=== PATIENT | female | born 1960 | race Caucasian/White ===

== ENCOUNTER → 2017-09-13 | Outpatient (CLI) | payer BC ==
[~2017-09-13] MED LIST: BACLOFEN20 MG PO; DEPAKOTE250 MG; EXCEDRIN MIGRA1 EAC1 PO; FLEXERIL PO; IBUPROFEN 200200 M1 PO; LEXAPRO 10 MG T10 M1; LIPITOR10 MG PO; NEXIUM40 MG; NORCO 5-325 TA1 EACH PO; PAMELOR10 MG PO; PERCOCET 10-321 EACH PO; PERCOCET PO; PHENERGAN 25 MG25 M1 PO; PREMPRO 0.3 MG1 EACH PO; PREMPRO 0.625-1 EACH; TOPAMAX 25 MG T25 M1; VICODIN 5-5001 EACH PO; ZOFRAN ODT4 MG PO; ZOFRAN4 MG PO; ZYRTEC 10 MG TA10 MG PO; ZYRTEC10 M5
== END ==
LOC: RAD 08:27
DX: Z12.31 Encounter for screening mammogram for malignant neoplasm of breast (principal)

== ENCOUNTER → 2018-02-13 | Outpatient (CLI) | payer BC ==
[~2018-02-13] VITALS: Ht 157.5 cm; Wt 58.5 kg
[~2018-02-13] MED LIST changes: +AMITRIPTYLINE H50 M2 PO; +KLONOPIN0.5 MG PO; +PREMPRO 0.45-11 EACH PO; +TOPAMAX50 MG PO
--- NOTE | ~2018-02-13 | HPC ---
[facility] [place] [address] PAIN MANAGEMENT CONSULTATION Name: ROCKY MICHAELS Room #: REG MARCO M.Refugio.#: [id number] Admission: 02/13/18 Attend Phys: Chaim Lizama DO Discharge: Date of : 60 Report #: [id number] THIS REPORT FOR: //name// CC: Chaim Salcedo MD DATE OF SERVICE: 02/13/2018 REFERRING PHYSICIAN: Corine Salcedo MD CHIEF COMPLAINT: Neck pain. HISTORY OF PRESENT ILLNESS: As you know, the patient is a very pleasant 57-year-old female, who returns today in followup visit with neck pain that began spontaneously. She is able to point to a very specific area that causes increase in symptoms. She is placing pain score around 7/10, states pain is aching in nature. It has been present for approximately 2 months. She has tried conservative medical therapy, but this has been ineffective at alleviating symptoms. She has returned per the request of her PCP for evaluation. She is denying any radicular component to her symptoms today. ALLERGIES: SULFA, CODEINE, BENADRYL. CURRENT MEDICATIONS: Escitalopram, cetirizine, omeprazole, topiramate, Excedrin Migraine, Prempro, atorvastatin. SOCIAL HISTORY: The patient denies tobacco, IV or illicit drug use. Admits to occasional alcohol beverage. She is a registered nurse, working, not receiving workmen's compensation, unaccompanied today. IMAGING: No new imaging available. PQRS: The patient has no known osteoarthritis or rheumatoid arthritis. She is not a fall risk. She has not had a fall in the last 3 months. She does provide a pain intensity of 7/10. She is not on blood thinners, not treated for hypertension. She is not on chronic opioids. She has a low opioid assessment risk factor. Pain impact score 31/70. PHYSICAL EXAMINATION: VITAL SIGNS: Blood pressure 113/79, pulse 77, respiratory rate 14 and unlabored. The patient is 99% on room air. Height 5 feet 2 inches tall, weight 129 pounds, BMI calculated 23.6. GENERAL: Well-developed, well-nourished, well-hydrated 57-year-old female appearing stated age. She is placing pain score today 7/10. HEENT: Normocephalic, atraumatic. Pupils equal, round, reactive to light. [facility] [address] [place] [address] PAIN MANAGEMENT CONSULTATION Name: ROCKY MICHAELS Room #: REG CLI [facility].#: [id number] Admission: 02/13/18 Attend Phys: Chaim Lizama DO Discharge: Date of : 60 Report #: [id number] EXTREMITIES: Show no clubbing, no cyanosis, no edema. MUSCULOSKELETAL: The patient has a definitive palpatory tenderness on the left cervical region, approximately C5-C6 level. There is no noted radicular component. Upper extremity strength is 5/5. She is intact to light touch from C5-T1 dermatomes. Deep tendon reflexes are symmetrical at biceps, brachialis and triceps. Spurling's test negative. Cervical provocation testing is met with increased pain on the left. ASSESSMENT: 1. Torticollis. 2. Myofascial pain. PLAN: 1. The patient has returned today in followup visit for increasing left neck pain with no radiation of symptoms. It appears by physical exam and history per patient provides and distribution of symptoms, it is myofascial in nature. We have discussed treatment for torticollis and myofascial symptoms that would include physical therapy, stretching exercises, slow manipulation techniques with myofascial release. We discussed trigger point injections and medication management. After reviewing risks and benefits of all proposed treatment options, the patient requested myofascial release techniques. We discussed the risks and benefits of myofascial release techniques. These would include increased pain, decreased mobility and increase in symptoms. After reviewing the risks and benefits, the patient chose to proceed 2. The patient was provided a prescription of clonazepam 0.5 mg 1 tab p.o. at bedtime. I have given the patient #30, advised the patient to take one half tab in the evening hours. If this is ineffective, then move towards a full tab. She is to take the medication only as directed, not to drive or operate heavy equipment while on the therapy. 3. We will see the patient back in followup visit on an as-needed basis. I am hopeful the myofascial treatment techniques provided today at bedside will improve the patient's overall pain. PROCEDURE NOTE DESCRIPTION OF PROCEDURE: Myofascial release techniques. After obtaining written consent, the patient was placed in a supine position. Using myofascial techniques, the patient was slowly stretched to manipulate through the myofascial symptoms she was experiencing. Rotational component was improved in the cervical region as well as the improvement in pain. There was no pain and paresthesias generated with the procedure. The patient tolerated all myofascial release techniques well. After meeting our discharge criteria [facility] [address] [place] [address] PAIN MANAGEMENT CONSULTATION Name: ROCKY MICHAELS Room #: GENE LARA Shanthi#: [id number] Admission: 02/13/18 Attend Phys: Chaim Lizama DO Discharge: Date of : 60 Report #: [id number] and after undergoing the myofascial release techniques, the patient was discharged home. <ELECTRONICALLY SIGNED> By: Chaim Lizama DO 02/19/18 1336 [id number] Chaim Lizama DO /nt
[2018-02-13 07:35] VITALS: BP 113/79
== END ==
LOC: PAIN 06:56
DX: M43.6 Torticollis (principal); M79.1 Myalgia; Z79.899 Other long term (current) drug therapy

== ENCOUNTER → 2018-07-12 | Outpatient (CLI) | payer BC ==
[~2018-07-12] VITALS: Ht 157.5 cm; Wt 60.3 kg
--- NOTE | ~2018-07-12 | HPC ---
[facility] [place] [address] PAIN MANAGEMENT CONSULTATION Name: ROCKY MICHAELS Room #: REG MARCO M.Refugio.#: [id number] Admission: 07/12/18 Attend Phys: Chaim Lizama DO Discharge: Date of : 60 Report #: [id number] THIS REPORT FOR: //name// CC: Chaim Salcedo MD DATE OF SERVICE: 07/12/2018 REFERRING PHYSICIAN: Corine Salcedo MD CHIEF COMPLAINT: Neck pain. HISTORY OF PRESENT ILLNESS: As you know, the patient is a very pleasant 58-year-old female who returns today in followup visit with recurrent neck pain and left upper extremity pain with paresthesias. The patient states the pain began spontaneously, no inciting injury or trauma. As you are aware, the patient has done very well with previous epidural injections noticing significant pain improvement. She returns requesting next in the series of cervical epidural injections to build on success of previous intervention. The patient has had no changes in her medical history since our last visit. She is not on any blood thinners. ALLERGIES: SULFA, CODEINE, and BENADRYL. CURRENT MEDICATIONS: Escitalopram, cetirizine, omeprazole, topiramate, Excedrin Migraine, Prempro, and atorvastatin. SOCIAL HISTORY: The patient denies tobacco, IV or illicit drug use, admits to occasional alcoholic beverage. She is a registered nurse, working, not receiving workmen's compensation, unaccompanied today. IMAGING: No new imaging available. PHYSICAL EXAMINATION: VITAL SIGNS: Blood pressure 112/77, pulse 88, respiratory rate 16 and unlabored, the patient is 100% on room air, height 5 feet 2 inches tall, weight 133 pounds, BMI calculated 24.3. GENERAL: Well-developed, well-nourished, well-hydrated 58-year-old female, appearing stated age, pain is rated at 7/10. HEENT: Normocephalic, atraumatic. Pupils are equal, round, and reactive to light. Speech is fluent. EXTREMITIES: Show no clubbing, no cyanosis, and no edema. MUSCULOSKELETAL: The patient does have palpatory tenderness over the cervical region on the left, approximate C5-C6 level. Spurling's test is positive left, negative right. Pain is noted to reach the hand with Spurling's test. [facility] [address] [place] [address] PAIN MANAGEMENT CONSULTATION Name: ROCKY MICHAELS Room #: GENE MARCO Maki#: [id number] Admission: 07/12/18 Attend Phys: Chaim Lizama DO Discharge: Date of : 60 Report #: [id number] to light touch from C5-T1 dermatomes. ASSESSMENT: 1. Cervical radiculopathy. 2. Cervical spondylosis with radicular symptoms. 3. Intractable pain. PLAN: 1. The patient has returned today in followup visit requesting to undergo a cervical epidural injection under fluoroscopic guidance. The patient has done very well with previous cervical epidural injections. Last injection that the patient had with our services was in 2014 and she has done well since that time. She returns requesting this cervical epidural injection to address spontaneously recurrent cervical radiculopathy with left upper extremity symptoms. The patient has been advised risks and benefits of the procedure, states she understood and wished to proceed. 2. No medication changes were made at today's visit, the patient will continue current medical therapy as previously prescribed. 3. We will see the patient back in followup visit on an as needed basis for the possible next in the series of cervical epidural injections. PROCEDURE NOTE DESCRIPTION OF PROCEDURE: C7-T1 cervical epidural steroid injection under fluoroscopic guidance. After obtaining written consent, the patient was taken back to fluoroscopy suite, placed in prone position with pillows under the chest and forehead to decrease cervical lordosis. Skin overlying cervical area then prepped and draped in aseptic fashion. C7-T1 cervical interspace identified by AP fluoroscopy. Skin and subcutaneous tissue overlying target site of injection was anesthetized with 3 mL of 1% lidocaine. A 20-gauge 3-1/2-inch Tuohy needle advanced under fluoroscopic guidance towards the epidural space using a midline approach. Epidural space identified using loss of resistance to air technique. After negative aspiration for heme or cerebrospinal fluid, 1 mL of Omnipaque injected. A cervical epidurogram confirmed using both AP and lateral fluoroscopy. After negative aspiration for heme or cerebrospinal fluid, 5 mL of solution containing 2 mL 40 mg per mL, 80 mg total triamcinolone, 3 mL lidocaine 1% injected slowly. Needle retracted custodial, flushed with 1 mL of 1% lidocaine and removed. Sterile bandage placed over injection site. No new motor deficits present in upper extremity following procedure. The patient tolerated the procedure well, carefully escorted to recovery room in [address] [address] PAIN MANAGEMENT CONSULTATION Name: ROCKY MICHAELS Room #: GENE Maki#: [id number] Admission: 07/12/18 Attend Phys: Chaim Lizama DO Discharge: Date of : 60 Report #: [id number] stable condition. No apparent complication. After meeting discharge criteria, the patient discharged home. By: [id number] Chaim Lizama DO /nt
[2018-07-12 07:07] VITALS: BP 112/77
== END | disposition home or self-care (01) ==
LOC: PAIN 06:56
DX: M47.22 Other spondylosis with radiculopathy, cervical region (principal); G89.29 Other chronic pain; Z88.2 Allergy status to sulfonamides; Z88.6 Allergy status to analgesic agent; Z88.8 Allergy status to other drugs, medicaments and biological substances; Z79.899 Other long term (current) drug therapy

== ENCOUNTER → 2018-11-05 | Outpatient (CLI) | payer BC ==
[~2018-11-05] VITALS: Ht 157.5 cm; Wt 58.5 kg
[~2018-11-05] MED LIST changes: +CLONAZEPAM 1 MG1 M1 PO
--- NOTE | ~2018-11-05 | HPC ---
[facility] [address] [place] [address] PAIN MANAGEMENT CONSULTATION Name: ROCKY MICHAELS Room #: REG MARCO M..#: [id number] Admission: 11/05/18 Attend Phys: Chaim Lizama DO Discharge: Date of : 60 Report #: [id number] THIS REPORT FOR: //name// CC: Chaim Salcedo MD DATE OF SERVICE: 11/05/2018 CHIEF COMPLAINT: Right neck pain and right upper extremity pain with paresthesias. HISTORY OF PRESENT ILLNESS: As you know, the patient is a very pleasant 58-year-old female who returns today in followup visit with recurrent right neck pain and upper extremity pain with paresthesias. The patient states her pain began spontaneously without inciting injury or trauma, progressively worsened. She returns today to make adjustments in medication therapy. She is considering undergoing the next in the series of cervical epidural injections. She is also complaining of left shoulder pain located over the posterior portion of the shoulder. She states she suffered no injury or trauma but has been experiencing increasing pain in the area. She is having difficulty abducting her shoulder, also has pain elicited with Apley's maneuver on the left. She returns today in followup visit for adjustments in medications to discuss treatment options. ALLERGIES: SULFA, CODEINE and BENADRYL. CURRENT MEDICATIONS: Escitalopram, cetirizine, omeprazole, topiramate, Excedrin Migraine, Prempro, atorvastatin, baclofen and clonazepam. SOCIAL HISTORY: The patient denies tobacco, IV or illicit drug use. Admits occasional alcohol beverage. She is a registered nurse, working, not receiving workmen's compensation, unaccompanied today. IMAGING DATA: No new imaging available. PHYSICAL EXAMINATION: VITAL SIGNS: Blood pressure 107/77, pulse is 97 and respiratory rate 14 and unlabored. The patient is 99% on room air. Height 5 feet 2 inches tall, weight 129 pounds and BMI calculated 23.6. GENERAL: Well-developed, well-nourished and well-hydrated 58-year-old female appearing stated age, placing current pain score at approximately 4/10. HEENT: Normocephalic and atraumatic. Pupils equal, round and reactive to light. Extraocular muscles are intact. Speech fluent. EXTREMITIES: Show no clubbing, no cyanosis and no edema. MUSCULOSKELETAL: The patient has palpatory tenderness over the right cervical area approximately midway. There is no radiation of symptoms towards the [facility] [address] [place] [address] PAIN MANAGEMENT CONSULTATION Name: ROCKY MICHAELS Room #: REG MARCO Shanthi#: [id number] Admission: 11/05/18 Attend Phys: Chaim Lizama DO Discharge: Date of : 60 Report #: [id number] occiput at this point. Appears to be recurrence of cervical radicular symptoms typical for this patient. There is also palpatory tenderness over the posterior aspect of the shoulder. Apley's test positive, left and negative, right. She does have pain elicited with abduction of the shoulder to approximately 90 degrees for pain intensifies and can no longer move forward from there. Other propagating testings of the left shoulder were negative. ASSESSMENT: 1. Cervical radiculopathy. 2. Cervical spondylosis with radiculopathy. 3. Left shoulder pain. 4. Left acromioclavicular joint osteoarthritis. 5. Chronic intractable pain. PLAN: 1. The patient had had a long discussion today about ongoing right cervical spine pain. It does appear that she is having a slow recurrence of her cervical radiculopathy. At present, I believe we can control her symptoms more with medication management. A portion of this does appear to be related to the facet joints of the cervical spine as well, leading to myofascial symptoms. We will make adjustments in medication at this point but could consider possibly undergoing next in the series of cervical epidural injections if necessary. We will make the following adjustments in medication today. 2. We will increase the patient's clonazepam from 0.[address] up to 1 mg a doubling of her dose. She will take this at night for anxiolytic benefit and muscle spasming. I have given the patient #30 tablets, 2 refills, 3 months' worth of medication. I have advised the patient to watch for side effects of somnolence, decreased mental acuity, disorientation, confusion with the use of this medication. If she notes any side effects, discontinue immediately and then contact our clinic. 3. The patient will continue on baclofen, we will increase dose to 20 mg 3 times a day and this will help for muscle spasming. I have given the patient #90 tablets and 2 refills 3 months' worth of medication. 4. The patient will begin to apply diclofenac 3% gel to her cervical spine on the right as well as over the left shoulder posteriorly. I have called in a prescription of this medication to her local pharmacy. I have given her 100 g tubes, 3 tubes per month with 2 refills, 3 months' worth of medication. The patient will watch for topical irritation with application of this medication. 5. We did discuss the possibility of having the patient undergo an intra-articular left shoulder injection to address left shoulder pain. She also does appear to have some left AC joint osteoarthritic changes with what appears to be a small synovial cyst off this joint. Further evaluation with imaging may be necessary though at this point, I would recommend conservative treatment with intra-articular shoulder injections and exercise program. If this is ineffective, then move forward with imaging to determine if surgical options may be necessary. The patient was amenable to suggestion. [facility] [address] [place] [address] PAIN MANAGEMENT CONSULTATION Name: ROCKY MICHAELS Room #: REG Rafael Maki#: [id number] Admission: 11/05/18 Attend Phys: Chaim Lizama DO Discharge: Date of : 60 Report #: [id number] 6. We will see the patient back in followup visit on an as needed basis for interventional treatments; otherwise, we will see her back for medication management in 3 months. By: 0901 [id number] Chaim Lizama DO /nt
[2018-11-05 13:37] VITALS: BP 107/77
== END ==
LOC: PAIN 10:09
DX: M47.22 Other spondylosis with radiculopathy, cervical region (principal); M19.012 Primary osteoarthritis, left shoulder; G89.4 Chronic pain syndrome

== ENCOUNTER → 2018-12-13 | Outpatient (CLI) | payer BC | LOC: ULTRA 08:32 | DX: M79.89 Other specified soft tissue disorders (principal); M79.605 Pain in left leg ==

== ENCOUNTER → 2019-08-12 | Outpatient (CLI) | payer BC ==
[~2019-08-12] VITALS: Ht 157.5 cm; Wt 59.6 kg
[2019-08-12 11:08] VITALS: BP 125/85
--- NOTE | 2019-08-12 11:14 | NUR ---
Pain Clinic Assessment: 1. History of Osteoarthritis: NECK History of Rheumatoid Arthritis: Not Applicable 2. Height: 5 ft. 2 in. 157.5 cm. Weight: 131.4 lb. oz. 59.603 kg. Patient's BMI: 24.0 3. Vital Signs: BP: 125/85 Pulse: 90 Resp: 16 Temp: 02 Sat: 100 ECG Mon: 4. Pain Intensity: 5 5. Fall Risk: Dizziness: N Needs help standing or walking: N Fallen in the last 3 months: N Fall risk comments: 6. Patient on Blood Thinner: None 7. History of Hypertension: N 8. Opioid Therapy greater than 6 weeks: N Opiate Contract Signed: 9. Risk Assessment Tool Provided: LOW RISK 11/21 10. Functional Assessment Tool: 11. Recreational Drug Use: Never Drug Type: Tobacco Use: Never Smoker Tobacco Type: Amount or Packs/day: How Many Years: Alcohol Use: Yes Frequency: Monthly Quant: 2-3
--- NOTE | 2019-08-26 07:47 | HPC ---
[facility] [address] [place] [address] PAIN MANAGEMENT CONSULTATION Name: ROCKY MICHAELS Room #: REG MARCO MJac.#: [id number] Admission: 08/12/19 Attend Phys: Chaim Lizama DO Discharge: Date of : 60 Report #: [id number] THIS REPORT FOR: //name// CC: Chaim Salcedo MD DATE OF SERVICE: 08/12/2019 CHIEF COMPLAINT: Left neck pain. HISTORY OF PRESENT ILLNESS: As you know, the patient is a very pleasant 59-year-old female who returns today in followup visit with point specific left neck pain. The patient is able to localize the area directly over the facet joints at approximately C3-C4 level. Deep palpation of the area causes intensification of pain. This is a new distribution of symptoms for the patient and she does have some symptoms radiating over the top of the head, appears to be a trigger point. She has returned to discuss possible trigger point injection. She denies injury or trauma that led to symptom development. ALLERGIES: SULFA, CODEINE, BENADRYL. CURRENT MEDICATIONS: Escitalopram, Cetirizine, omeprazole, topiramate, Excedrin Migraine, Prempro, atorvastatin, baclofen, and clonazepam. SOCIAL HISTORY: The patient denies tobacco, IV or illicit drug use. Admits to occasional alcohol beverage. She is a registered nurse, working, not receiving workmen's compensation, unaccompanied today. IMAGING: No new imaging available. PHYSICAL EXAMINATION: VITAL SIGNS: Blood pressure 125/85, pulse 90, respiratory rate 16 and unlabored. The patient is 100% on room air. Height 5 feet 2 inches tall, weight 131.4 pounds, BMI calculated 24.0. GENERAL: Well-developed, well-nourished, well-hydrated 59-year-old female appearing stated age, pain is rated today at approximately 5/10. HEENT: Normocephalic, atraumatic. Pupils equal, round, reactive to light. EXTREMITIES: Show no clubbing, no cyanosis, no edema. MUSCULOSKELETAL: Upper extremity strength appears symmetrical 5/5, intact to light touch from C5 through T1 dermatomes. Spurling's test is negative. Deep palpation over the facet joint at C2-C3 appears to exacerbate symptoms. It does appear to be a trigger point in this area. No specific tender points. Cervical provocation testing is met with pain over the area. ASSESSMENT: [address] [address] PAIN MANAGEMENT CONSULTATION Name: ROCYK MICHAELS Room #: REG CLI Shanthi#: [id number] Admission: 08/12/19 Attend Phys: Chaim Lizama DO Discharge: Date of : 60 Report #: [id number] 1. Myofascial pain. 2. Chronic trigger point. 3. Facet arthropathy pain. PLAN: 1. Based on today's physical exam and history the patient has provided, the description the patient uses in regards to pain as well as the localized area of discomfort, likely source of the patient's pain is myofascial in origin. We discussed with the patient the possibility of undergoing a trigger point injection in the area in hopes of improving pain. The patient was amenable to do so. She has been advised the risks and benefits of the procedure, states understood and wished to proceed. 2. No medication changes made at today's visit. The patient will continue current medical therapy as prior prescribed. 3. We will see the patient back in followup visit for the next in the series of trigger point injections if necessary. We are hopeful the patient will see good and prolonged benefit with today's procedure. DESCRIPTION OF PROCEDURE: Trigger point injection. After obtaining written consent, the patient was placed in a prone position. By palpating using a single finger, one trigger point was identified in the upper cervical paraspinal musculature on the left side. Deep palpation in the area caused typical radiating pain pattern. The trigger area was prepped and draped using chlorhexidine. A 27-gauge 1-1/4-inch needle was then advanced towards the trigger point until the patient's typical radiating pain pattern was reproduced. After negative aspiration for heme, 1.5 mL of a solution containing 1 mL, 40 mg per mL, 40 mg total triamcinolone and 0.5 mL bupivacaine 0.5% was injected slowly. Needle then retracted fdc, flushed with 0.5 mL of lidocaine 1%, then removed. Sterile bandage was placed over injection site. There were no new motor deficits present in the upper extremities following procedure. The patient tolerated the procedure well, carefully escorted to recovery room in stable condition. No apparent complications. After meeting discharge criteria, the patient discharged home. <ELECTRONICALLY SIGNED> By: Chaim Lizama DO 08/26/19 0747 [id number] Chaim Lizama DO /nt
== END | disposition home or self-care (01) ==
LOC: PAIN 06:56
DX: M79.18 Myalgia, other site (principal); M54.2 Cervicalgia; G89.29 Other chronic pain; M12.88 Other specific arthropathies, not elsewhere classified, other specified site; Z88.2 Allergy status to sulfonamides; Z88.8 Allergy status to other drugs, medicaments and biological substances; Z79.899 Other long term (current) drug therapy

== ENCOUNTER → 2020-03-09 | Outpatient (CLI) | payer BC ==
[~2020-03-09] VITALS: Ht 157.5 cm; Wt 60.8 kg
[~2020-03-09] MED LIST changes: +VOLTAREN GEL 1100 G1 TOP
[2020-03-09 14:06] VITALS: BP 126/85
--- NOTE | 2020-03-09 14:09 | NUR ---
Pain Clinic Assessment: 1. History of Osteoarthritis: NECK HANDS History of Rheumatoid Arthritis: Not Applicable 2. Height: 5 ft. 2 in. 157.5 cm. Weight: 134.0 lb. oz. 60.782 kg. Patient's BMI: 24.5 3. Vital Signs: BP: 126/85 Pulse: 89 Resp: 18 Temp: 02 Sat: 100 ECG Mon: 4. Pain Intensity: 7 5. Fall Risk: Dizziness: N Needs help standing or walking: N Fallen in the last 3 months: N Fall risk comments: 6. Patient on Blood Thinner: None 7. History of Hypertension: N 8. Opioid Therapy greater than 6 weeks: N Opiate Contract Signed: 9. Risk Assessment Tool Provided: LOW RISK 11/21 10. Functional Assessment Tool: 11. Recreational Drug Use: Never Drug Type: Tobacco Use: Never Smoker Tobacco Type: Amount or Packs/day: How Many Years: Alcohol Use: Yes Frequency: Weekly Quant: 1-2
--- NOTE | 2020-03-10 12:25 | HPC ---
[facility] [address] [place] [address] PAIN MANAGEMENT CONSULTATION Name: ROCKY MICHAELS Room #: REG MARCO M.R.#: [id number] Admission: 03/09/20 Attend Phys: Chaim Lizama DO Discharge: Date of : 60 Report #: [id number] THIS REPORT FOR: cc: Corine Salcedo MD, Michelle R. MD Johnson, James E. DO ~ DATE OF SERVICE: 03/09/2020 CHIEF COMPLAINT: Neck pain, right upper extremity pain with paresthesias. HISTORY OF PRESENT ILLNESS: As you know, the patient is a very pleasant 59-year-old female returning in followup visit with recurrent neck pain, right upper extremity pain with paresthesias. The patient states pain began approximately 2 weeks ago and progressively worsened. She denies injury or trauma that may have led to symptom reoccurrence. The patient has had right neck and right upper extremity pain in the past for which she has undergone cervical epidural injections with good efficacy. She returns today requesting next in the series of cervical epidural injections to address recurrent cervical radiculopathy. ALLERGIES: SULFA, CODEINE, BENADRYL. CURRENT MEDICATIONS: Atorvastatin 10 mg once a day, Excedrin Migraine 1 tab to 2 tabs p.r.n. headache, Zyrtec 10 mg per day, escitalopram 10 mg per day, baclofen 20 mg t.i.d. p.r.n., clonazepam 1 mg per day p.r.n. anxiety, diclofenac gel applied topically up to 3 times a day, Prempro 0.3 mg/1.5 mg tablet 1 tablet per day. SOCIAL HISTORY: The patient denies tobacco, alcohol, IV or illicit drug use. She is working, not receiving workmen's compensation, unaccompanied today. IMAGING: No new imaging available. PHYSICAL EXAMINATION: VITAL SIGNS: Blood pressure 126/85, pulse 89, respiratory rate 18 and unlabored. The patient is 100% on room air. Height 5 feet 2 inches tall, weight 134 pounds, BMI calculated 24.5. GENERAL: Well-developed, well-nourished, well-hydrated, 59-year-old female. She appears her stated age, pain is rated today 7/10. HEENT: Normocephalic, atraumatic. Pupils equal, round, reactive. Speech fluent. EXTREMITIES: Show no clubbing, no cyanosis, and no edema. MUSCULOSKELETAL: The patient is positive for cervical provocation testing to the right, negative left. Spurling's test positive right, negative left. Muscle bulk and tone is symmetrical in comparing left upper extremity to right. [facility] [address] [place] [address] PAIN MANAGEMENT CONSULTATION Name: ROCKY MICHAELS Room #: REG MARCO Siegel.#: [id number] Admission: 03/09/20 Attend Phys: Chaim Lizama DO Discharge: Date of : 60 Report #: [id number] She remains intact to light touch from C5 through T1 dermatomes. Deep tendon reflexes are equal and symmetrical in the upper extremities. ASSESSMENT: 1. Cervical radiculopathy. 2. Cervical spondylosis with radiculopathy. 3. Chronic intractable pain. PLAN: 1. The patient returns today in followup visit with recurrence of cervical radiculopathy. The patient denies injury or trauma that may have led to symptom reoccurrence. She states her pain began about 2 weeks ago and has progressively worsened. The previous cervical epidural injection provided the patient with significant pain improvement near 100% improvement in overall pain initially lasting for about a month to month and a half and then a slow progressive return of symptoms. She returns today in followup visit requesting the next series of cervical epidural injections. The patient has been advised risks and benefits of a cervical epidural injection. These risks include but are not necessarily limited to bleeding, bruising, infection, worsening pain, no relief of pain, also risk of temporary or permanent muscle weakness, temporary or permanent nerve damage, possible paralysis and . The patient states understood and wished to proceed. The patient has advised of risks specific to the COVID-19 virus. There have been studies indicating that steroid exposure can reduce one's ability to maintain an effective immune response and thus may lead to a potential increased risk of joanie COVID-19. There is also a risk that if the patient currently has COVID-19 infection that it may worsen symptoms. The patient states she understands these specific risks of COVID-19 and wishes to proceed. 2. No medication changes made at today's visit. 3. We will see the patient back in followup visit on an as needed basis for possible next in the series of cervical epidural injections. We are hopeful the patient will see good and prolonged benefit with today's cervical injection. PROCEDURE NOTE DESCRIPTION OF PROCEDURE: C7-T1 cervical epidural steroid injection under fluoroscopic guidance. After obtaining written consent, the patient was taken back to fluoroscopy suite, placed in prone position with separate pillows under chest and forehead to decrease cervical lordosis. Skin overlying cervical area then prepped and draped in aseptic fashion. C7-T1 cervical interspace was identified by AP fluoroscopy. Skin and subcutaneous tissue overlying target site injection anesthetized with 3 mL of 1% lidocaine. [address] [address] PAIN MANAGEMENT CONSULTATION Name: ROCKY MICHAELS Room #: REG [facility]#: [id number] Admission: 03/09/20 Attend Phys: Chaim Lizama DO Discharge: Date of : 60 Report #: [id number] A 20-gauge 3-1/2 inch Tuohy needle advanced under fluoroscopic guidance towards the epidural space using a right parasagittal approach. Epidural space identified using loss of resistance to air technique. After negative aspiration for heme or cerebrospinal fluid, 1 mL of Omnipaque injected. A cervical epidurogram was confirmed using both AP and oblique fluoroscopy. After negative aspiration for heme or cerebrospinal fluid, 5 mL of a solution containing 2 mL 40 mg per mL, 80 mg total triamcinolone along with 3 mL of lidocaine 1% injected slowly. Needle retracted approximately half way, flushed with 1 mL of 1% lidocaine and then removed. Sterile bandage placed over injection site. There were no new motor deficits present in the upper extremities following procedure. The patient tolerated procedure well, carefully escorted to recovery room in stable condition. No apparent complications. After meeting discharge criteria, the patient discharged home. <ELECTRONICALLY SIGNED> By: Chaim Lizama DO 03/10/20 1225 [id number] [id number] Chaim Lizama DO /nt
== END | disposition home or self-care (01) ==
LOC: PAIN 13:54
DX: M47.22 Other spondylosis with radiculopathy, cervical region (principal); G89.29 Other chronic pain; Z98.890 Other specified postprocedural states; Z79.899 Other long term (current) drug therapy; Z88.2 Allergy status to sulfonamides; Z88.8 Allergy status to other drugs, medicaments and biological substances

== ENCOUNTER → 2020-07-23 | Outpatient (CLI) | payer BC ==
[~2020-07-23] VITALS: Ht 157.5 cm; Wt 61.2 kg
[2020-07-23 12:12] VITALS: BP 119/90
--- NOTE | 2020-07-23 12:19 | NUR ---
Pain Clinic Assessment: 1. History of Osteoarthritis: NECK HANDS History of Rheumatoid Arthritis: Not Applicable 2. Height: 5 ft. 2 in. 157.5 cm. Weight: 135.0 lb. oz. 61.236 kg. Patient's BMI: 24.7 3. Vital Signs: BP: 119/90 Pulse: 98 Resp: 16 Temp: 02 Sat: 97 ECG Mon: 4. Pain Intensity: 5 5. Fall Risk: Dizziness: N Needs help standing or walking: N Fallen in the last 3 months: N Fall risk comments: 6. Patient on Blood Thinner: None 7. History of Hypertension: N 8. Opioid Therapy greater than 6 weeks: N Opiate Contract Signed: 9. Risk Assessment Tool Provided: LOW RISK 11/21 10. Functional Assessment Tool: 11. Recreational Drug Use: Never Drug Type: Tobacco Use: Never Smoker Tobacco Type: Amount or Packs/day: How Many Years: Alcohol Use: Yes Frequency: Daily Quant: 3-4
--- NOTE | 2020-07-27 12:51 | HPC ---
[facility] [place] [address] [place] [address] PAIN MANAGEMENT CONSULTATION Name: ROCKY MICHAELS Room #: REG MARCO Robbin.#: [id number] Admission: 07/23/20 Attend Phys: Chaim Lizama DO Discharge: Date of : 60 Report #: [id number] THIS REPORT FOR: cc: Corine Salcedo MD, Michelle R. MD Johnson, James E. DO ~ DATE OF SERVICE: 07/23/2020 CHIEF COMPLAINT: Neck pain, bilateral upper extremity pain with paresthesias, right greater than left. HISTORY OF PRESENT ILLNESS: As you know, the patient is a very pleasant 60-year-old female, who has recurrent cervical radiculopathy without an inciting injury or trauma. The patient underwent previous cervical epidural injections, which provide 80% improvement in overall pain. Unfortunately, her symptoms have begun to return without inciting injury or trauma. She is describing the pain at a level of 5/10. Pain is aching, numbness and tingling in sensation, exacerbated with looking down. Rotation of the cervical spine and exacerbated with sleeping positions. She returns today in followup visit to undergo cervical epidural injection under fluoroscopic guidance to address cervical radiculopathy. ALLERGIES: SULFA, CODEINE, DIPHENHYDRAMINE. CURRENT MEDICATIONS: Diclofenac gel applied topically 4 times a day, clonazepam 1 mg p.o. at bedtime, baclofen 20 mg t.i.d., escitalopram 10 mg per day, Zyrtec 10 mg per day, Excedrin 2 tablets p.r.n., atorvastatin 10 mg per day. SOCIAL HISTORY: The patient denies tobacco, alcohol, IV or illicit drug use. She is working, not receiving workmen's compensation, unaccompanied today. IMAGING: No new imaging available. PHYSICAL EXAMINATION: VITAL SIGNS: Blood pressure 119/90, pulse 98, respiratory rate 16 and unlabored. The patient is 97% on room air. Height 5 feet 2 inches tall, weight 135 pounds, BMI calculated at 24.7. GENERAL: Well-developed, well-nourished, well-hydrated, 60-year-old female appearing stated age. She is in no acute distress, awake, alert and oriented x 3, pain is rated today at 5/10. HEENT: Normocephalic, atraumatic. Pupils are equal, round and reactive. Speech is fluent. EXTREMITIES: Show no clubbing, no cyanosis, and no edema. MUSCULOSKELETAL: Upper extremity strength equal and symmetrical 5/5. Slight change in tactile sensation on the right when compared to left. It appears to [address] [address] PAIN MANAGEMENT CONSULTATION Name: ROCKY MICHAELS Room #: REG CLI M.R.#: [id number] Admission: 07/23/20 Attend Phys: Chaim Lizama DO Discharge: Date of : 60 Report #: [id number] be along the C7 and C8 dermatomal distribution. Muscle bulk and tone is equal and symmetrical in the upper extremities. Spurling's test positive on the right, negative left. Cervical provocation testing is met with increasing pain. ASSESSMENT: 1. Symptomatic lumbar radiculopathy. 2. Cervical spondylosis with radiculopathy. 3. Chronic intractable pain. PLAN: 1. The patient returns today in followup visit having noted 80% improvement in overall pain with the previous cervical epidural injection. She was very pleased with response to that injection, but unfortunately her symptoms have begun to return. There has been no new inciting injury or trauma. She has requested a repeat cervical epidural injection to address cervical radiculopathy today. The patient and I did discuss this at length, the risks and benefits. She states she understood and wished to proceed. 2. The patient and I did discuss that the possibility of imaging may be necessary in the future. We will try today's epidural injection, but if we do not see significant pain improvement, I believe that it would be most prudent to undergo imaging of the cervical spine to determine if treatment options need to be adjusted. The patient is agreeable. We will consider this option at our next visit. 3. No medication changes made at today's visit. The patient will continue current medical therapy as prior prescribed. 4. I will see the patient back in followup visit on an as-needed basis, possible next in the series of cervical epidural injections. We are hopeful the patient will see good and prolonged benefit with today's procedure. PROCEDURE NOTE DESCRIPTION OF PROCEDURE: Cervical epidural steroid injection under fluoroscopic guidance. After obtaining written consent, the patient was taken back to fluoroscopy suite, placed in a prone position with pillow under her abdomen to decrease lumbar lordosis. Skin overlying lumbosacral area was then prepped and draped in an aseptic fashion. The cervical intervertebral spaces were identified by AP fluoroscopy. Skin and subcutaneous tissue overlying target site injection was anesthetized with 3 mL of 1% lidocaine. A 20-gauge 3-1/2 inch Tuohy needle advanced under fluoroscopic guidance towards the epidural space using a midline approach. Epidural space identified using loss of resistance to air technique. After negative aspiration for heme or cerebrospinal fluid, 1 mL of Omnipaque injected. A cervical epidurogram was confirmed using both AP and oblique fluoroscopy. After negative aspiration for [address] [address] PAIN MANAGEMENT CONSULTATION Name: ROCKY MICHAELS Room #: REG [facility]#: [id number] Admission: 07/23/20 Attend Phys: Chaim Lizama DO Discharge: Date of : 60 Report #: [id number] heme or cerebrospinal fluid, 5 mL of a solution containing 2 mL of 40 mg per mL, 80 mg total triamcinolone along with 3 mL of lidocaine 1% injected slowly. Needle was then retracted approximately half way, flushed with 1 mL of 1% lidocaine and then removed. Sterile bandage placed over injection site. No new motor deficits present in the upper or lower extremities following procedure. The patient tolerated the procedure well, carefully escorted to recovery room in stable condition. No apparent complications. After meeting our discharge criteria, the patient was discharged home. <ELECTRONICALLY SIGNED> By: Chaim Lizama DO 07/27/20 1251 1323 1401 Chaim Lizama DO /nt
== END | disposition home or self-care (01) ==
LOC: PAIN 10:15
PROVIDERS: ATTEND Anesthesiology Pain Medicine
DX: M47.22 Other spondylosis with radiculopathy, cervical region (principal); G89.29 Other chronic pain; Z98.890 Other specified postprocedural states; Z79.899 Other long term (current) drug therapy; Z88.2 Allergy status to sulfonamides; Z88.8 Allergy status to other drugs, medicaments and biological substances

== ENCOUNTER → 2020-08-25 | Outpatient (CLI) | payer BC | LOC: BC 15:10 | PROVIDERS: ATTEND Family Medicine | DX: Z12.31 Encounter for screening mammogram for malignant neoplasm of breast (principal) ==

== ENCOUNTER → 2020-11-09 | Outpatient (CLI) | payer BC ==
[~2020-11-09] VITALS: Ht 157.5 cm; Wt 68.2 kg
[2020-11-09 07:16] VITALS: BP 139/93
--- NOTE | 2020-11-09 07:22 | NUR ---
Pain Clinic Assessment: 1. History of Osteoarthritis: NECK HANDS History of Rheumatoid Arthritis: Not Applicable 2. Height: 5 ft. 2 in. 157.5 cm. Weight: 150.4 lb. oz. 68.221 kg. Patient's BMI: 27.5 3. Vital Signs: BP: 139/93 Pulse: 108 Resp: 18 Temp: 02 Sat: 99 ECG Mon: 4. Pain Intensity: 6 5. Fall Risk: Dizziness: N Needs help standing or walking: N Fallen in the last 3 months: N Fall risk comments: 6. Patient on Blood Thinner: None 7. History of Hypertension: N 8. Opioid Therapy greater than 6 weeks: N Opiate Contract Signed: 9. Risk Assessment Tool Provided: LOW RISK 11/21 10. Functional Assessment Tool: 11. Recreational Drug Use: Never Drug Type: Tobacco Use: Never Smoker Tobacco Type: Amount or Packs/day: How Many Years: Alcohol Use: Yes Frequency: Weekly Quant: 1-2
--- NOTE | 2020-11-10 11:33 | HPC ---
[facility] [address] [place] [address] PAIN MANAGEMENT CONSULTATION Name: ROCKY MICHAELS Room #: REG MARCO Shanthi#: [id number] Admission: 11/09/20 Attend Phys: Chaim Lizama DO Discharge: Date of : 60 Report #: [id number] THIS REPORT FOR: cc: Corine Salcedo MD, Michelle R. MD Johnson, James E. DO ~ DATE OF SERVICE: 11/09/2020 CHIEF COMPLAINT: Neck pain, right upper extremity pain with paresthesias. HISTORY OF PRESENT ILLNESS: As you know, the patient is a very pleasant 60-year-old female returning in followup visit with recurrent neck pain, right upper extremity pain with paresthesias. The patient indicates pain at a level today of about 6/10. She has done very well with previous epidural injections to address cervical radiculopathy with a 70% improvement or greater, lasting for greater than 2 months. Unfortunately, her symptoms have begun to return. She denies any injury or trauma. She indicates her pain is chronic in nature, describes the pain is aching, numbness and tingling radiating into the right hand. She is placing pain today at 6/10. She states that looking down, turning her head to the right and sleeping, exacerbates symptoms. Medications, heat and cold compresses and previous cervical epidural injections tend to improve pain. She has been referred back to our clinic to undergo next in the series of cervical epidural injections. The patient returns today in followup visit to undergo next in the series of cervical epidural injections in hopes of improving pain. ALLERGIES: SULFA, CODEINE, DIPHENHYDRAMINE. CURRENT MEDICATIONS: Diclofenac gel applied topically 3 times a day, clonazepam 1 mg p.r.n., baclofen 20 mg t.i.d. p.r.n., escitalopram 10 mg per day, cetirizine 10 mg per day, Excedrin Migraine 2 tabs p.r.n., atorvastatin 10 mg per day. SOCIAL HISTORY: The patient denies tobacco, IV or illicit drug use. Admits occasional alcohol beverage. She is a registered nurse, working, not receiving workmen's compensation, unaccompanied today. IMAGING: No new imaging available. PHYSICAL EXAMINATION: VITAL SIGNS: Blood pressure 139/93, pulse is 108, respiratory rate 18 and unlabored. The patient is 99% on room air. Height 5 feet 2 inches tall, weight 150.4 pounds, BMI calculated 27.5. GENERAL: Well-developed, well-nourished, well-hydrated 60-year-old female appearing stated age. She is placing current pain score around 6/10. HEENT: Normocephalic, atraumatic. Pupils equal, round and reactive. [facility] [address] [place] [address] PAIN MANAGEMENT CONSULTATION Name: ROCKY MICHAELS [id number] Admission: 11/09/20 Attend Phys: Chaim Lizama DO Discharge: Date of : 60 Report #: [id number] NEUROLOGIC: Speech is fluent. The patient deemed an excellent historian. She is wearing a mask in compliance with COVID-19 regulations. EXTREMITIES: Show no clubbing, no cyanosis, no edema. MUSCULOSKELETAL: Upper extremity strength is symmetrical 5/5. Muscle bulk and tone is symmetrical in comparing left upper extremity to right. Spurling's test positive right, negative left. Cervical provocation including extension, rotation to the right exacerbates right radicular symptoms. ASSESSMENT: 1. Cervical radiculopathy. 2. Cervical spondylosis with radiculopathy. 3. Chronic intractable pain. PLAN: 1. The patient returns today in followup visit requesting to undergo cervical epidural injection under fluoroscopic guidance. The most recent cervical epidural injection provided on 07/23/2020 gave 70% improvement in overall pain lasting nearly 2 months. She has had a slow and progressive return of symptoms without inciting injury or trauma. She returns today in followup visit to undergo cervical epidural injection. The patient has been advised risks and benefits of a cervical epidural injection. These risks include but are not necessarily limited to bleeding, bruising, infection, worsening pain, no relief of pain, also risk of temporary or permanent muscle weakness, temporary or permanent nerve damage, possible paralysis and . The patient states understood and wished to proceed. 2. No medication changes made at today's visit. The patient will continue current medical therapy as prior prescribed. 3. We plan to see the patient back in followup visit on an as needed basis for possible next in the series of cervical epidural injections. We are hopeful the patient will see good and prolonged benefit with today's cervical injection. DESCRIPTION OF PROCEDURE: C7-T1 cervical epidural steroid injection under fluoroscopic guidance. After obtaining written consent, the patient was taken back to fluoroscopy suite, placed in prone position with pillow under chest and forehead to decrease cervical lordosis. Skin overlying cervical area then prepped and draped in aseptic fashion. C7-T1 cervical interspace identified by AP fluoroscopy. Skin and subcutaneous tissue overlying target site injection anesthetized with 3 mL of 1% lidocaine. A 20-gauge 3-1/2 inch Tuohy needle advanced under fluoroscopic guidance towards the epidural space using midline approach. Epidural space identified using loss of resistance to air technique. After negative aspiration for heme or cerebrospinal fluid, 1 mL of Omnipaque injected. A cervical epidurogram was confirmed using both AP and oblique fluoroscopy. After negative aspiration for [facility] [address] [place] [address] PAIN MANAGEMENT CONSULTATION Name: ROCKY MICHAELS Room #: REG [facility].#: [id number] Admission: 11/09/20 Attend Phys: Chaim Lizama DO Discharge: Date of : 60 Report #: [id number] heme or cerebrospinal fluid, 5 mL of a solution containing 2 mL 40 mg per mL, 80 mg total triamcinolone along with 3 mL of lidocaine 1% injected slowly. Needle retracted longterm, flushed with 1 mL of 1% lidocaine and removed. Sterile bandage placed over injection site. No new motor deficits present in the upper extremities following procedure. The patient tolerated procedure well, carefully escorted to recovery room in stable condition. No apparent complications. After meeting discharge criteria, the patient discharged home. <ELECTRONICALLY SIGNED> By: Chaim Lizama DO 11/10/20 1133 [id number] Chaim Lizama DO /nt
== END | disposition home or self-care (01) ==
LOC: PAIN 06:42
PROVIDERS: ATTEND Anesthesiology Pain Medicine
DX: M47.22 Other spondylosis with radiculopathy, cervical region (principal); G89.29 Other chronic pain; Z98.890 Other specified postprocedural states; Z79.899 Other long term (current) drug therapy; Z88.2 Allergy status to sulfonamides; Z88.8 Allergy status to other drugs, medicaments and biological substances

== ENCOUNTER → 2021-04-05 | Outpatient (CLI) | payer BC ==
[~2021-04-05] VITALS: Ht 157.5 cm; Wt 67.8 kg
[~2021-04-05] MED LIST changes: +COZAAR 50 MG TA50 MG PO; +RELAFEN500 M1 PO
[2021-04-05 14:01] VITALS: BP 129/92
--- NOTE | 2021-04-05 14:16 | NUR ---
Pain Clinic Assessment: 1. History of Osteoarthritis: NECK HANDS History of Rheumatoid Arthritis: Not Applicable 2. Height: 5 ft. 2 in. 157.5 cm. Weight: 149.4 lb. oz. 67.767 kg. Patient's BMI: 27.3 3. Vital Signs: BP: 129/92 Pulse: 93 Resp: 14 Temp: 02 Sat: 98 ECG Mon: 4. Pain Intensity: 5 5. Fall Risk: Dizziness: N Needs help standing or walking: N Fallen in the last 3 months: N Fall risk comments: 6. Patient on Blood Thinner: None 7. History of Hypertension: N 8. Opioid Therapy greater than 6 weeks: N Opiate Contract Signed: 9. Risk Assessment Tool Provided: LOW RISK 1 10. Functional Assessment Tool: 11. Recreational Drug Use: Never Drug Type: Tobacco Use: Never Smoker Tobacco Type: Amount or Packs/day: How Many Years: Alcohol Use: Yes Frequency: Quant:
--- NOTE | 2021-04-06 08:22 | HPC ---
[facility] [place] [address] PAIN MANAGEMENT CONSULTATION Name: ROCKY MICHAELS Room #: REG MARCO Robbin.#: [id number] Admission: 04/05/21 Attend Phys: Chaim Lizama DO Discharge: Date of : 60 Report #: [id number] THIS REPORT FOR: cc: Corine Salcedo MD, Michelle R. MD Johnson, James E. DO ~ DOC #: [id number] cc: MD Chaim Weiss DO DATE OF SERVICE: 04/05/2021 DATE OF SERVICE: 04/05/2021 CHIEF COMPLAINT: Neck pain, bilateral lower extremity pain with paresthesias. HISTORY OF PRESENT ILLNESS: As you know, the patient is a very pleasant 60-year-old female who has returned today in followup visit to undergo cervical epidural injection under fluoroscopic guidance. The patient reports recurrence of her cervical radiculopathy that began about 2-3 weeks ago. She trialled conservative treatment options including rest, relaxation changes in daily activity and [id number] medication without benefit. She returns today with a pain level of 5/10 requesting a cervical epidural injection under fluoroscopic guidance. She states pain begins in the neck, radiates down bilateral arms into the hands. She states the pain is aching, numbness and tingling in sensation. The patient indicates pain is exacerbated with looking down turning her head. Sleeping improves with medications, heat, cold compresses and previous cervical epidural injections. She reports the previous cervical epidural injection gave 95% improvement in overall pain lasting for over four months. She returns today for the next in the series to address recurrent cervical radiculopathy. ALLERGIES: SULFA, CODEINE, DIPHENHYDRAMINE. CURRENT MEDICATIONS: See chart. SOCIAL HISTORY: The patient denies tobacco, IV or illicit drug use. Admits occasional alcohol beverage. She is a registered nurse working, not receiving workmen's compensation, unaccompanied today. IMAGING: No new imaging available. PHYSICAL EXAMINATION: VITAL SIGNS: Blood pressure 129/92, pulse 93, respiratory rate 14 and unlabored. The patient 98% on room air. Height 5 feet 2 inches tall, weight 149.4 pounds, BMI calculated 27.3. GENERAL: Well-developed, well-nourished, well-hydrated, 60-year-old female, [address] [address] PAIN MANAGEMENT CONSULTATION Name: ROCKY MICHAELS Room #: REG MARCO WhitmoreEufemia#: [id number] Admission: 04/05/21 Attend Phys: Chaim Lizama DO Discharge: Date of : 60 Report #: [id number] appears stated age. She is in no acute distress. Pain is rated around 5/10. HEENT: Normocephalic, atraumatic. Pupils are round. She is wearing a mask in compliance with COVID-19 regulations. EXTREMITIES: Show no clubbing, no cyanosis and no appreciable edema. MUSCULOSKELETAL: Spurling's test is positive on the right, negative left. Cervical provocation testing met with increasing pain with rotation to the right, lateral flexion to the right and rotation to the left. Upper extremity strength remains symmetrical 5/5. Muscle bulk and tone equal and symmetrical. ASSESSMENT: 1. Cervical radiculopathy. 2. Cervical spondylosis with radiculopathy. 3. Chronic intractable pain. PLAN: 1. The patient returns today in followup visit requesting a cervical epidural injection under fluoroscopic guidance. She has done very well with previous epidural injection reporting 95% improvement in overall pain lasting until just recently where she has had a slow and progressive return of symptoms without inciting injury or trauma. She has been advised risks and benefits of the procedure, states understood and wished to proceed. 2. No medication changes made at today's visit. The patient will continue current medical therapy as prior prescribed. 3. We plan to see the patient back in followup visit on an as needed basis for the next in the series of cervical epidural injections. We will once again hope that the patient will see good and prolonged benefit as she has in the past with this epidural injection. PROGRESS NOTE DESCRIPTION OF PROCEDURE: C7-T1 cervical epidural steroid injection under fluoroscopic guidance. After obtaining written consent, the patient was taken back to fluoroscopy suite, placed in prone position with a separate pillows under chest and forehead to decrease cervical lordosis. Skin overlying cervical area then prepped and draped in aseptic fashion. C7-T1 cervical interspace identified by AP fluoroscopy. Skin and subcutaneous tissue overlying target site injection anesthetized with 3 mL 1% lidocaine. A 20 gauge 3-1/2 inch Tuohy needle advanced under fluoroscopic guidance towards the epidural space using a midline approach. Epidural space identified using loss of resistance to air technique. After negative aspiration for heme or cerebrospinal fluid, 1 mL of Omnipaque injected. A cervical epidurogram was confirmed using both AP and oblique fluoroscopy. After negative aspiration for heme or cerebrospinal fluid, 5 mL solution containing 2 mL 40 mg per mL [address] [address] PAIN MANAGEMENT CONSULTATION Name: ROCKY MICHAELS Room #: GENE Siegel.#: [id number] Admission: 04/05/21 Attend Phys: Chaim Lizama DO Discharge: Date of : 60 Report #: [id number] total triamcinolone along with 3 mL of lidocaine 1% injected slowly. Needle retracted [facility] flushed with 1 mL of 1% lidocaine, then removed. Sterile bandage placed over injection site. No new motor deficits present in the upper extremities following procedure. The patient tolerated the procedure well, carefully escorted to recovery room in stable condition. No apparent complications. After meeting discharge criteria, the patient discharged home. Chaim Lizama DO JEJ/CHEN <ELECTRONICALLY SIGNED> By: Chaim Lizama DO 04/06/21 0822 1429 0020 Chaim Lizama DO /nt
== END | disposition home or self-care (01) ==
LOC: PAIN 10:34
PROVIDERS: ATTEND Anesthesiology Pain Medicine
DX: M47.22 Other spondylosis with radiculopathy, cervical region (principal); G89.29 Other chronic pain; M54.2 Cervicalgia; Z98.890 Other specified postprocedural states; Z79.899 Other long term (current) drug therapy; Z88.2 Allergy status to sulfonamides; Z88.6 Allergy status to analgesic agent; Z88.8 Allergy status to other drugs, medicaments and biological substances

== ENCOUNTER → 2021-09-27 | Outpatient (CLI) | payer BC ==
[~2021-09-27] VITALS: Ht 157.5 cm; Wt 65.9 kg
[2021-09-27 10:21] VITALS: BP 139/89
--- NOTE | 2021-09-27 10:39 | NUR ---
Pain Clinic Assessment: 1. History of Osteoarthritis: NECK HANDS History of Rheumatoid Arthritis: Not Applicable 2. Height: 5 ft. 2 in. 157.5 cm. Weight: 145.2 lb. oz. 65.862 kg. Patient's BMI: 26.6 3. Vital Signs: BP: 139/89 Pulse: 85 Resp: 14 Temp: 02 Sat: 98 ECG Mon: 4. Pain Intensity: 5 5. Fall Risk: Dizziness: N Needs help standing or walking: N Fallen in the last 3 months: N Fall risk comments: 6. Patient on Blood Thinner: None 7. History of Hypertension: N 8. Opioid Therapy greater than 6 weeks: N Opiate Contract Signed: 9. Risk Assessment Tool Provided: LOW RISK 1 10. Functional Assessment Tool: 11. Recreational Drug Use: Never Drug Type: Tobacco Use: Never Smoker Tobacco Type: Amount or Packs/day: How Many Years: Alcohol Use: Yes Frequency: Weekly Quant: 3
--- NOTE | 2021-09-27 15:06 | HPC ---
[facility] [address] [place] [address] PAIN MANAGEMENT CONSULTATION Name: ROCKY MICHAELS Room #: REG MARCO Robbin.#: [id number] Admission: 09/27/21 Attend Phys: Chaim Lizama DO Discharge: Date of : 60 Report #: [id number] THIS REPORT FOR: cc: Corine Salcedo MD,Chaim Nayak MD, DO ~ cc: Corine Salcedo MD DATE OF SERVICE: 09/27/2021 CHIEF COMPLAINT: Neck pain, bilateral upper extremity pain with paresthesias. HISTORY OF PRESENT ILLNESS: As you know, the patient is a very pleasant 61-year-old female returning in followup visit with recurrence of cervical radiculopathy involving the neck, upper back and bilateral upper extremities with radiation of symptoms to the first 3 digits bilaterally. The patient reports previous cervical epidural injection gave 95% improvement in overall pain lasting for nearly 4 months. The patient reports no new injury or trauma that may have led to recurrence of symptoms. She states she was doing very well until just recently where she began to experience paresthesias in the upper extremities, followed by recurrence of pain. She returns today in followup visit requesting a cervical epidural injection under fluoroscopic guidance in hopes of gaining similar efficacy. The patient has had no changes in medication management that would preclude her from undergoing a requested epidural injection today. ALLERGIES: SULFA, CODEINE, DIPHENHYDRAMINE. CURRENT MEDICATIONS: Losartan, nabumetone, clonazepam, baclofen, escitalopram, Excedrin Migraine and atorvastatin. SOCIAL HISTORY: The patient denies tobacco, IV or illicit drug use. Admits to occasional alcohol beverage. She is a registered nurse, working, not receiving workmen's compensation, unaccompanied today. IMAGING: No new imaging available. PHYSICAL EXAMINATION: VITAL SIGNS: Blood pressure 139/89, pulse 85, respiratory rate 14 and unlabored. The patient 98% on room air. Height 5 feet 2 inches tall, weight 145.2 pounds, BMI calculated 26.6. GENERAL: Well-developed, well-nourished, well-hydrated 61-year-old female appearing stated age, pain is rated today 5/10. HEENT: Normocephalic, atraumatic. Pupils equal, round and responsive, wearing a mask in compliance with COVID-19 regulations and hospital requirements. EXTREMITIES: Show no clubbing, no cyanosis. No appreciable edema. MUSCULOSKELETAL: Upper extremity strength is symmetrical 5/5. Muscle bulk and [address] [address] PAIN MANAGEMENT CONSULTATION Name: ROCKY MICHAELS Room #: REG [facility].#: [id number] Admission: 09/27/21 Attend Phys: Chaim Lizama DO Discharge: Date of : 60 Report #: [id number] tone is symmetrical in comparing left upper extremity to right. Spurling's test positive on the right, negative left. Cervical provocation testing is met with slight increase in pain mainly with rotation. Upper extremities, deep tendon reflexes are symmetrical at biceps, brachioradialis and triceps. ASSESSMENT: 1. Cervical radiculopathy. 2. Cervical spondylosis with radiculopathy. 3. Chronic intractable pain. PLAN: 1. The patient returns today in followup visit requesting to undergo cervical epidural injection under fluoroscopic guidance. She reports 95% improvement in overall pain with the epidural injection provided at the last visit, lasting for nearly 4 months. Unfortunately, symptoms reoccurred without inciting injury or trauma. She returns requesting a cervical epidural injection to build on success of previous intervention. The patient has been advised risks and benefits of the procedure, states understood and wished to proceed. 2. No medication changes made at today's visit. The patient will continue current medical therapy as prior prescribed. 3. Plan to see the patient back in followup visit on an as needed basis for the next in the series of cervical epidural injections. We are once again hopeful that the patient will see good and prolonged benefit with the injection provided today. We will make ourselves available to see her back on an as needed basis. PROCEDURE NOTE DESCRIPTION OF PROCEDURE: Cervical epidural steroid injection under fluoroscopic guidance. After obtaining written consent, the patient was taken back to fluoroscopy suite, placed in prone position with separate pillows under chest and forehead to decrease cervical lordosis. Skin overlying the cervical area then prepped and draped in aseptic fashion. C7-T1 cervical interspace was identified by AP fluoroscopy. Skin and subcutaneous tissue overlying target site injection anesthetized with 3 mL of 1% lidocaine. A 20 gauge 3-1/2 inch Tuohy needle advanced under fluoroscopic guidance towards the epidural space using a midline approach. Epidural space identified using loss of resistance to air technique. After negative aspiration for heme or cerebrospinal fluid, 1 mL of Omnipaque injected. A cervical epidurogram was confirmed using both AP and lateral fluoroscopy. After negative aspiration for heme or cerebrospinal fluid, 5 mL of a solution containing 2 mL 40 mg per mL 80 mg total triamcinolone along with 3 mL of lidocaine 1% injected slowly. Needle retracted chcf flushed with 1 mL of 1% lidocaine, then removed. Sterile bandage placed over injection site. No new motor deficits present in the [facility] [address] [place] [address] PAIN MANAGEMENT CONSULTATION Name: ROCKY MICHAELS Room #: REG [facility]#: [id number] Admission: 09/27/21 Attend Phys: Chaim Lizama DO Discharge: Date of : 60 Report #: [id number] extremities following procedure. The patient tolerated the procedure well, carefully escorted to recovery room in stable condition. No apparent complications. After meeting discharge criteria, the patient discharged home. <ELECTRONICALLY SIGNED> By: Chaim Lizama DO 09/27/21 1506 1115 1233 Chaim Lizama DO /nt
== END | disposition home or self-care (01) ==
LOC: PAIN 07:22
PROVIDERS: ATTEND Anesthesiology Pain Medicine
DX: M47.22 Other spondylosis with radiculopathy, cervical region (principal); G89.29 Other chronic pain; M54.2 Cervicalgia; Z98.890 Other specified postprocedural states; Z79.899 Other long term (current) drug therapy; Z88.2 Allergy status to sulfonamides; Z88.8 Allergy status to other drugs, medicaments and biological substances